=== PATIENT | male | born 1970 ===

== ENCOUNTER 2025-05-10 06:26 | Day surgery (SDC) | payer BC, SELFPAY | END 2025-05-10 08:52 | disposition home or self-care (01) | LOC: GI 06:26 | PROVIDERS: ATTENDING PHYSICIAN Internal Medicine Gastroenterology | DX: Z12.11 Encounter for screening for malignant neoplasm of colon (principal); D12.4 Benign neoplasm of descending colon; D12.5 Benign neoplasm of sigmoid colon; K63.5 Polyp of colon; K57.30 Diverticulosis of large intestine without perforation or abscess without bleeding; K64.8 Other hemorrhoids; R19.5 Other fecal abnormalities | CPT/HCPCS: 45380; 88305 ==